=== PATIENT | male | born 1960 | race Caucasian/White ===

== ENCOUNTER → 2024-08-15 08:08 | Outpatient (REF) | payer OTHER, SELFPAY | LOC: HWRAD 08:08 | PROVIDERS: ATTENDING PHYSICIAN Nurse Practitioner Adult Health; FAMILY PHYSICIAN Family Medicine | DX: D86.9 Sarcoidosis, unspecified (principal); R91.8 Other nonspecific abnormal finding of lung field | CPT/HCPCS: 71250 ==

== ENCOUNTER 2025-01-04 12:12 | Emergency (ER) | payer OTHER, SELFPAY ==
[2025-01-04 12:18] VITALS: BP 134/81
[2025-01-04 12:25] VITALS: BP 126/84
[2025-01-04 13:00] VITALS: BP 114/96
[2025-01-04 13:13] VITALS: BMI 25.4
--- NOTE | 2025-01-04 13:35 | ED.GENMED ---
History of Present Illness
General
Chief Complaint: Breathing Problem
Source: patient and spouse
Exam Limitations: none
Time Seen by Provider: 01/04/25 12:55
History of Present Illness
History of Present Illness:
Patient presents with cough persistent. Has been going on for over a week. No sputum no hemoptysis no chest pain or pleuritic pain. All seem to start after cleaning out an old barn with bat and moose droppings. History of sarcoidosis. Mild
shortness of breath with this. In addition has a history of pulmonary emboli in the past. Is on Lovenox when he takes flights. No recent pulmonary emboli.
Past History
Past History
ED Past Medical History: HTN and Other (Sarcoidosis/pulmonary emboli)
ED Past Surgical History: Other (Left eye surgery. Hernia surgery)
Patient has exhibited threatening behavior?: No
Social History
Tobacco: Non-smoker
Review of Systems
Review of Systems
All Other Systems: Not applicable
Constitutional: Denies fever or chills
Respiratory: Denies hemoptysis
Cardiac: Denies chest pain, palpitations or syncope
Phy Exam
Physical Exam
Physical Exam:
GENERAL: Alert and oriented in no apparent distress
EYE: Orbits normal.
NECK: Supple, no significant adenopathy.
ENT: Pharynx without erythema. Very slight hoarse voice
CARDIAC: Regular rate and rhythm without any obvious murmurs.
LUNGS: Clear breath sounds,normal
ABDOMEN: Soft, without focal tenderness or distention
NEUROLOGICAL: Alert and oriented , grossly non-focal
SKIN: Warm and dry, no rash or lesion, no discoloration, skin intact.
MUSCULOSKELETAL: No edema,no deformity.Good color
PSYCH: Normal and appropriate interaction.
Scores
Heart Failure Risk
Heart Failure Risk Score: Not Applicable
Course
Orders/Labs/Results
Orders:
Orders
01/04/25 13:06
Electrocardiogram (*1) Stat
Reason for Study: Other
Other Reason for Exam: chest pain
CT Chest PE Study Urgent
Comment:
Reason For Exam: Cough short of breath. History of PE
EKG- Treatment ONCE
IV Insert/Care/Rem.- Treatment PRN
0.9% Sodium Chloride 500 ml [Nss] 500 ml IV BOLUS
Pulse Ox/cont/shift [RESP] Stat
Quantity: 1
01/04/25 13:40
Basic Metabolic Panel Urgent
COVID-19 Antigen Urgent
Source: Nasal Swab
Complete Blood Count/With Diff Urgent
Influenza A+B Rapid Molecular Urgent
JANIA Source: Nasal Swab
Specimen Description:
01/04/25 17:42
Doxycycline [Vibramycin] 100 mg PO NOW STA
Abnormal Lab Results
01/04/25
13:40
RBC 4.43 L 10^6/uL
(4.70-6.10)
MCH 31.8 H pg
(27.0-31.0)
Abs Immat Gran (auto) 0.1 H 10^3/uL
(0-0.05)
Absolute Neuts (auto) 6.8 H 10^3/uL
(1.4-6.5)
Absolute Monos (auto) 1.2 H 10^3/uL
(0.1-0.6)
Immature Gran % 0.6 H %
(0-0.5)
Lymphocytes % 16.9 L %
(20.5-51.1)
Monocytes % 11.5 H %
(1.7-9.3)
Glucose 105 H mg/dl
(70-99)
01/04/25 13:40
01/04/25 13:40
Vital Signs
Initial and Last Documented VS:
Initial Vital Signs
Temp Pulse Resp Pulse Ox
99.4 F 68 18 95
01/04/25 12:14 01/04/25 12:14 01/04/25 12:14 01/04/25 12:14
Last Documented Vital Signs
Temp Pulse Resp BP Pulse Ox
99.4 F 62 18 132/81 96
01/04/25 12:14 01/04/25 15:00 01/04/25 12:14 01/04/25 15:00 01/04/25 15:00
MDM/Problems Addressed
Differential Diagnosis Includes:
Patient likely describing inflammatory issues/bronchitis. Lungs are relatively clear. No respiratory distress. However with history of pulmonary emboli this would also be a consideration and needs to be evaluated. Will receive a CT angiography.
Not describing acute cardiac issues.
*Radiology
Radiology exam reviewed: radiology read reviewed (No pulmonary emboli. Small area of pneumonitis by CT.)
*Pulse Oximetry
SaO2: 97
Oxygen Mode of Delivery: Room air
Patient hypoxic: no
*EKG
Interpretation: normal
Comparison EKG: no changes
Heart Rate: 72
Rate: normal
Rhythm: sinus
Paxton: normal axis
Interval: normal interval
QRS Pattern: normal QRS
Ischemia: no ischemia
*Critical Care Note
Total Time (30-74mins, 75-104mins- exclusive of procedures): Not Applicable
Update Note
Update Note:
Reviewed with pulmonary. Agree with antibiotics. Only steroids if wheezing. Reexamined and no wheezing. Discharged to follow-up. Copy of CT report given to patient
ED Attending Note
-
Portions of this chart may have been created with voice recognition software.� Occasional wrong word or��sound alike� substitutions may have occurred due to the inherent limitations of voice recognition software.
Discharge Plan
Departure
Patient Disposition: Home (Routine Discharge)
Date of Disposition: 01/04/25
Time of Disposition: 17:43
Patient with high blood pressure during this ER visit?: Yes
Discharge Problem:
Pneumonitis left lower lung, History of sarcoidosis
Instructions: Shortness of Breath (Dyspnea) (DC), Pneumonitis (DC), BLOOD PRESSURE
Prescriptions:
New
doxycycline hyclate 100 mg capsule
100 mg PO BID 10 Days Qty: 20 0RF
No Action
aspirin 81 MG tablet,delayed release (DR/EC)
81 mg PO DAILY
metoprolol succinate 25 MG tablet extended release 24 hr
50 mg PO DAILY
modafinil [Provigil] 100 MG tablet
100 mg PO BID
multivitamin [One-A-Day Essential] 1 EACH tablet
1 ea PO DAILY
sertraline 100 mg Tablet
100 mg PO DAILY
fluticasone furoate-vilanterol [Breo Ellipta] 100-25 mcg/dose Blister With Device
1 inh INHALATION Q24H
Referrals:
Pb Fregoso MD [Active, Pulmonary Medicine] - Follow up in 5-7 days
Colin Fierro DO [Family Provider, Family Practice] - Follow up in 2-3 days
Activity Restrictions/Additional Instructions:
Follow-up with pulmonary
Your prescription was sent to your pharmacy
Interventions
Interventions:
*Risk Screen - Suicide Last Done: 01/04/25 12:16
*General Assessment Last Done: 01/04/25 13:17
*Neglect/Abuse Screening Last Done: 01/04/25 13:17
*ED- Fall Risk Assessment Last Done: 01/04/25 13:17
*ED COVID-19 Vaccine History Last Done: 01/04/25 13:17
*Nursing Disposition Last Done: 01/04/25 18:12
ED- Cardiac Assessment Last Done: 01/04/25 13:17
ED- Pulmonary Assessment Last Done: 01/04/25 13:17
Discharge Date and Time
Discharge Date/Time: 01/04/25 18:18
Print Language: [facility] [place]
[2025-01-04] MEDS: NSS 500 IV (13:41)
[2025-01-04 13:51] LABS: % Basophils 0.5 % (0-2); % Eosinophils 2.8 % (0-6); % Immature Granulocytes 0.6 % (0-0.5); % Lymphocytes 16.9 % (20.5-51.1); % Monocytes 11.5 % (1.7-9.3); % Neutrophils 67.7 % (42.2-75.2); Absolute Basophils 0.1 10^3/uL (0-0.2); Absolute Eosinophils 0.3 10^3/uL (0-0.7); Absolute Immature Granulocytes 0.1 10^3/uL (0-0.05); Absolute Lymphocytes 1.7 10^3/uL (1.2-3.4); Absolute Monocytes 1.2 10^3/uL (0.1-0.6); Absolute Neutrophils 6.8 10^3/uL (1.4-6.5); Hematocrit 39.5 % (39.0-52.0); Hemoglobin 14.1 g/dL (13.0-18.0); Mean Corp Hgb Conc. 35.7 g/dL (33.0-37.0); Mean Corpuscular Hgb 31.8 pg (27.0-31.0); Mean Corpuscular Volume 89.2 fL (80.0-94.0); Mean Platelet Volume 8.5 fL (7.4-10.4); Nucleated Red Blood Cells % 0 % (-); Platelet Count 259 10^3/uL (130-400); Red Blood Cell Count 4.43 10^6/uL (4.70-6.10); Red Cell Dist. Width 12.6 % (11.5-14.5)
[2025-01-04 14:00] VITALS: BP 126/76
[2025-01-04 14:08] LABS: Blood Urea Nitrogen 11 mg/dl (9-20); Calcium 9.8 mg/dl (8.4-10.2); Carbon Dioxide 25 mmol/L (22-30); Chloride 106 mmol/L (98-107); Estimated Creatinine Clearance > 125 ml/min; Glucose 105 mg/dl (70-99); Potassium 4.1 mmol/L (3.5-5.1); Sodium 139 mmol/L (135-145); eGFR > 60.00
[2025-01-04 15:00] VITALS: BP 132/81
[2025-01-04 15:45] LABS: COVID-19 Antigen Negative (Negative)
[2025-01-04] MEDS: VIBRAMYCIN 100 MG PO (17:56)
== END 2025-01-04 18:18 | disposition home or self-care (01) ==
LOC: EMR 12:12
PROVIDERS: EMERGENCY PHYSICIAN Emergency Medicine; FAMILY PHYSICIAN Family Medicine
DX: J18.9 Pneumonia, unspecified organism (principal); I10 Essential (primary) hypertension; D86.9 Sarcoidosis, unspecified; Z86.711 Personal history of pulmonary embolism; Z79.01 Long term (current) use of anticoagulants; Z11.52 Encounter for screening for COVID-19
CPT/HCPCS: 96360; 96361; 99284; 71275; 80048; 85025; 87502; 87811; 93005; Q9967